=== PATIENT | male | born 1955 | race Hispanic/Latino ===

== ENCOUNTER 2018-12-27 07:45 | Day surgery (SDC) | payer MEDICARE ==
[~2018-12-27] VITALS: Ht 154.9 cm; Wt 81.7 kg
[~2018-12-27 07:45] MED LIST: ASPIR 8181 MG PO; GLIPIZIDE XL2.5 MG PO; LISINOPRIL-HCT1 EAC1 PO; LISINOPRIL5 MG PO; METFORMIN HCL500 M2 PO; METOPROLOL SUCC50 MG PO; SIMVASTATIN20 MG PO
--- NOTE | 2018-12-27 09:55 | NUR ---
12/27/18 0955 Maida Newman 0948 PT TO PACU RESPONDS TO VERBAL ORDERS. RESP EVEN AND UNLABORED. NC AT 2L WITH SATS GREATER THAN 90%.
--- NOTE | 2018-12-28 08:45 | OR ---
[facility] [address], [place] [address] Signed DATE OF OPERATION: 12/27/2018 SURGEON: Shanae Negrete MD PREOPERATIVE DIAGNOSIS: Screening. POSTOPERATIVE DIAGNOSES: 1. Moderate internal hemorrhoids. 2. Internal anal skin tags. PROCEDURE: Colonoscopy without biopsy. ESTIMATED BLOOD LOSS: None. INDICATIONS: Varghese is a 63-year-old gentleman who is now retired from our [employer]. He was asked to see me for his initial screening colonoscopy. He has no lower GI complaints. There is no family history of colon cancer or polyps. We had an nursery teacher with us in the office, as well as today and he did quite well and is very knowledgeable with respect to his own health care. In the office, I gave him booklets and instructions written in both Irish and Swiss. We had gone over those extensively. He understands the nature of the colonoscopy along with the risks including, but not limited to gas, bloating, crampy abdominal pain, bleeding, perforation, requiring surgery, and missed diagnosis. He also understands the need for IV conscious sedation. He had expressed understanding and wished to proceed. PROCEDURE NOTE: Varghese was taken into our endoscopy suite and placed in the left lateral decubitus position. He was given divided doses of 5 mg of Versed and 100 mcg of fentanyl. A digital rectal exam was performed and this was unremarkable. His prostate is a little indurated. The left side is certainly more prominent than the right. After this, the adult colonoscope was introduced and advanced all the way around into the cecum under direct visualization of camera without difficulty. His prep was quite good. The scope was then slowly withdrawn. We took pictures throughout for photodocumentation. He had no pathology throughout the entire colon or rectum. Specifically, no polyps. No diverticulosis. Upon retroflexion of scope, he does have some minimal to moderate internal hemorrhoids and two internal anal skin tags. After this, the gas was suctioned Portions of this report were created using voice recognition software. There may be inadvertent computer error. Please read with context in mind. If there are any questions, please contact me. Electronically Signed By: SHANAE NEGRETE MD 12/28/18 0845 PATIENT NAME: VARGHESE WALSH OPERATIVE REPORT DATE OF : 59 REPORT #: [id number] PHYSICIAN: SHANAE NEGRETE MD PCP: VALERIE COTTRELL DO REPORT IS CONFIDENTIAL AND NOT TO BE RELEASED WITHOUT AUTHORIZATION [facility] [address] [place] [id number] Signed out and the colonoscope removed. Varghese tolerated the procedure quite well. RECOMMENDATIONS: Varghese can follow up in my office in 10 years for repeat colonoscopy. MD TAMEKA West/RANDYL /[id number] cc: DO Elayne Carr MD Andrew L Bower, MD Copies: VALERIE COTTRELL MERSHED MD BOWER, ANDREW L MD ~ Portions of this report were created using voice recognition software. There may be inadvertent computer error. Please read with context in mind. If there are any questions, please contact me. Electronically Signed By: SHANAE NEGRETE MD 12/28/18 0845 PATIENT NAME: VARGHESE WALSH OPERATIVE REPORT DATE OF : 59 REPORT #: [id number] PHYSICIAN: SHANAE NEGRETE MD PCP: VALERIE COTTRELL DO REPORT IS CONFIDENTIAL AND NOT TO BE RELEASED WITHOUT AUTHORIZATION
== END 2018-12-27 10:40 | disposition home or self-care (01) ==
LOC: OPS 07:45 → DS 07:45 → OPS 09:00
PROVIDERS: Colon & Rectal Surgery
PROC: 0DJD8ZZ Inspection of Lower Intestinal Tract, Via Natural or Artificial Opening Endoscopic (ICD-10-PCS; principal; 2018-12-27 09:00)
DX: Z12.11 Encounter for screening for malignant neoplasm of colon (principal); K64.4 Residual hemorrhoidal skin tags; K64.8 Other hemorrhoids; R41.3 Other amnesia; E11.9 Type 2 diabetes mellitus without complications; I10 Essential (primary) hypertension; I25.10 Atherosclerotic heart disease of native coronary artery without angina pectoris; E78.5 Hyperlipidemia, unspecified; E66.9 Obesity, unspecified; Z95.1 Presence of aortocoronary bypass graft; Z79.82 Long term (current) use of aspirin; Z79.899 Other long term (current) drug therapy; Z79.84 Long term (current) use of oral hypoglycemic drugs; Z68.33 Body mass index [BMI] 33.0-33.9, adult
CPT/HCPCS: 99153; G0500; J2250; J3010; J7120